=== PATIENT | female | born 1990 | race Caucasian/White ===

== ENCOUNTER → 2020-09-27 | Outpatient (CLI) | payer BC, MEDICARE ==
[~2020-09-27] MED LIST: AMOXICILLIN500 MG PO; COLESTIPOL HCL1 GM PO; MOTRIN200 MG PO; OMEPRAZOLE40 MG PO
== END ==
LOC: US 09:42
PROVIDERS: ATTEND Internal Medicine Gastroenterology
DX: R12 Heartburn (principal); K59.1 Functional diarrhea
CPT/HCPCS: 76700

== ENCOUNTER → 2020-10-03 | Day surgery (SDC) | payer BC, OTHER ==
[~2020-10-03] MED LIST changes: +FENTANYL CITRATE/PF 100MCG/2 ML INJ ONE; +LIDOCAINE HCL 2% LOCAL INJ 5 ML SDV VIAL INJ ONE; +METOCLOPRAMIDE HCL 10 MG/2ML VIAL ONE; +MIDAZOLAM HCL 5 MG/ML VIAL ONE; +PROPOFOL IV EMULSION 10 MG/ML 20 ML VIAL ONE
[2020-10-03 10:00] VITALS: BP 112/64
== END | disposition home or self-care (01) ==
LOC: OR 05:58
PROVIDERS: ATTEND Internal Medicine Gastroenterology
DX: K29.70 Gastritis, unspecified, without bleeding (principal); K29.80 Duodenitis without bleeding; K21.9 Gastro-esophageal reflux disease without esophagitis; R19.7 Diarrhea, unspecified; K76.0 Fatty (change of) liver, not elsewhere classified; I10 Essential (primary) hypertension; R68.84 Jaw pain; F17.210 Nicotine dependence, cigarettes, uncomplicated; Z91.041 Radiographic dye allergy status; Z01.812 Encounter for preprocedural laboratory examination; Z20.822 Contact with and (suspected) exposure to COVID-19; Z68.26 Body mass index [BMI] 26.0-26.9, adult; Z87.11 Personal history of peptic ulcer disease
CPT/HCPCS: 43239; 81025; C9113; J2001; J2250; J2704; J2765; J3010; U0002